=== PATIENT | male | born 1995 | race Caucasian/White ===

== ENCOUNTER 2025-08-28 03:18 | Emergency (ER) | payer BC ==
[~2025-08-28] VITALS: Ht 190.5 cm; Wt 114.0 kg
[2025-08-28 03:37] VITALS: TEMP 36.8; O2SAT 100
[2025-08-28 04:12] LABS: PLATELET 243 x1000/uL (130-400); RED BLOOD CELL COUNT 5.25 mill/uL (4.7-6.1); RED CELL DISTRIBUTION WIDTH 13.0 % (11.6-14.6)
[2025-08-28 04:26] LABS: CREATININE 1.0 mg/dL (0.6-1.3); UREA NITROGEN BLOOD 11 mg/dL (9-23)
[2025-08-28 04:27] LABS: TROPONIN I HIGH SENSITIVITY < 4 ng/L (3.0-53)
[2025-08-28 04:39] LABS: CLARITY URINE CLEAR (CLEAR); COLOR URINE YELLOW (YELLOW); GLUCOSE URINE NEGATIVE (NEGATIVE); KETONES URINE TRACE (NEGATIVE); LEUKOCYTE ESTERASE URINE NEGATIVE (NEGATIVE); NITRITE URINE NEGATIVE (NEGATIVE); OCCULT BLOOD URINE NEGATIVE (NEGATIVE); PH URINE 6.0 (4.5-8.0); PROTEIN URINE NEGATIVE (NEGATIVE); SPECIFIC GRAVITY URINE 1.023 (1.005-1.030); UROBILINOGEN URINE 1.0 E.U./dL (0.2-1.0)
[2025-08-28] MEDS ORDERED: IBUP-2028 MT (05:11)
[2025-08-28 05:30] VITALS: BP 111/72; PULSE 71; RESP 12; O2SAT 96
[2025-08-28 05:44] LABS: ASPARTATE AMINOTRANSFERASE 24 IU/L (<34); BILIRUBIN DIRECT 0.1 mg/dL (<=3.0); BILIRUBIN TOTAL 0.4 mg/dL (0.1-1.0); PROTEIN TOTAL 6.3 g/dL (6.0-8.3)
== END 2025-08-28 05:31 | disposition home or self-care (01) ==
LOC: ER 03:18
DX: R07.89 Other chest pain (principal); R06.02 Shortness of breath
CPT/HCPCS: 36415; 71045; 80048; 80076; 81003; 84484; 85027; 93005; 99284; 99285